=== PATIENT | male | born 1950 | race Asian ===

== ENCOUNTER 2018-11-08 00:43 | Emergency (ER) | payer OTHER ==
[~2018-11-08] VITALS: Ht 167.6 cm; Wt 79.4 kg
[2018-11-08 01:47] LABS: PLATELET COUNT 160 K/uL (142-355)
[2018-11-08 01:53] LABS: POTASSIUM 3.8 mmol/L (3.6-5.2)
[2018-11-08] MEDS ORDERED: AMLODIPINE BESYLATE PO (01:58)
[2018-11-08] MEDS ORDERED: LIPITOR20 MG PO (01:59)
[2018-11-08] MEDS ORDERED: DONE5TAB PO (02:00)
[2018-11-08] MEDS ORDERED: CLARITIN10 M1 PO (02:00)
[2018-11-08] MEDS ORDERED: ASPIRIN LOW DOS81 MG PO (02:01)
[2018-11-08] MEDS ORDERED: TAMS0.4C PO (02:01)
[2018-11-08] MEDS ORDERED: KEPPRA750 MG PO (02:02)
[2018-11-08] MEDS ORDERED: POT CHLORIDE10 ME1 PO (02:03)
[2018-11-08] MEDS ORDERED: ALTACE5 MG PO (02:04)
[2018-11-08] MEDS ORDERED: RISP0.5T2 PO (02:04)
[2018-11-08] MEDS ORDERED: MULTIVITAMI2 PO (02:06)
[2018-11-08] MEDS ORDERED: VITAMIN B1100 M1 PO (02:07)
[2018-11-08] MEDS ORDERED: DIVA250T PO (02:08)
[2018-11-08] MEDS ORDERED: DULCOLAX SS100 MG PO (02:09)
[2018-11-08] MEDS ORDERED: APIX1TAB PO (02:09)
[2018-11-08] MEDS ORDERED: GABA300C2 PO (02:10)
[2018-11-08] MEDS ORDERED: BACL10TA4 PO (02:10)
[2018-11-08] MEDS ORDERED: MUCUS RELIEF C200 MG PO (02:12)
[2018-11-08] MEDS ORDERED: OXYC5TAB53 PO (02:13)
[2018-11-08 02:35] VITALS: BP 171/72; TEMP 98
== END 2018-11-08 02:36 | disposition other institution (70) ==
LOC: ED 00:43
PROVIDERS: Internal Medicine
DX: F01.51 Vascular dementia, unspecified severity, with behavioral disturbance (principal)
CPT/HCPCS: 36415; 80053; 85027; 93005; 99285